=== PATIENT | female | born 1975 | race Hispanic/Latino ===

== ENCOUNTER 2022-03-02 23:12 | Observation (INO) | payer BC, OTHER ==
[~2022-03-02] VITALS: Ht 152.4 cm; Wt 57.9 kg
[2022-03-02 23:25] LABS: BASOPHILS % (AUTO) 0.5 % (0.0-5.0); EOSINOPHILS % (AUTO) 2.5 % (0.0-8.0); HEMATOCRIT 41.6 % (36-48); LYMPHOCYTES % (AUTO) 30.4 % (21.0-51.0); MEAN CORPUSCULAR HGB CONC 33.9 g/dL (32.0-36.0); MEAN CORPUSCULAR VOLUME 79.7 fL (79-99); NEUTROPHILS % (AUTO) 59.8 % (40.0-77.0); PLATELET COUNT (AUTO) 248 K/uL (130-400); RED BLOOD CELL COUNT(AUTO) 5.22 MIL/uL (4.00-5.50); RED CELL DISTRIBUTION WIDTH 12.6 % (11.0-15.5); WHITE BLOOD COUNT (AUTO) 7.3 K/uL (4.8-10.8)
[2022-03-02 23:36] LABS: CREATININE 0.8 mg/dL (0.5-1.5)
[2022-03-02 23:40] LABS: ALBUMIN 4.4 g/dL (3.5-5.0); BILIRUBIN,TOTAL 0.4 mg/dL (0.2-1.0); TOTAL PROTEIN, SERUM 8.1 g/dL (6.0-8.3)
[2022-03-02 23:57] LABS: APPEARANCE,URINE Clear (CLEAR); BILIRUBIN,URINE Negative (NEGATIVE); COLOR,URINE Yellow (YELLOW); GLUCOSE, URINE (UA) 500 mg/dL (NEGATIVE); KETONES,URINE Trace mg/dL (NEGATIVE); LEUKOCYTE ESTERASE ,URINE Negative (NEGATIVE); NITRATE,URINE Negative (NEGATIVE); OCCULT BLOOD,URINE Negative (NEGATIVE); PROTEIN,URINE Negative (NEGATIVE); UROBILINOGEN,URINE 0.2 mg/dL (0.2-1.0)
[2022-03-03] VITALS (8 sets, daily range): BP systolic 104–129; BP diastolic 65–86
[2022-03-03] MEDS ORDERED: NITROGLYCERIN 1GM OINT 1 INCH/1GM TD ONE ×2 (00:03→00:30)
[2022-03-03] MEDS ORDERED: ASPIRIN 325MG TAB ONE (00:03)
[2022-03-03 00:11] LABS: RBC,URINE 0-1 /HPF (0-1)
[2022-03-03 00:12] LABS: BACTERIA,URINE Few /HPF (None Seen); WBC,URINE 0-1 /HPF (0-1)
[2022-03-03 00:13] LABS: SQUAMOUS EPITHELIAL CELL,UR Rare /HPF (0-2)
[2022-03-03] MEDS: NITROGLYCERIN 1GM OINT 1 INCH/1GM TD SCH ×2 (00:30→08:57)
[2022-03-03] MEDS ORDERED: ASPIRIN 325MG TAB PO ONE (00:30)
[2022-03-03] MEDS ORDERED: ACETAMINOPHEN 325 MG TAB PO PRN ×2 (00:30)
[2022-03-03] MEDS ORDERED: ONDANSETRON 4MG INJ IV PRN (00:30)
[2022-03-03] MEDS ORDERED: CYCLOBENZAPRINE HCL 10 MG TABLET PO ONE (01:30)
[2022-03-03] MEDS ORDERED: HYDROCODONE/ACETAMINOPHEN 10/325 MG TAB PO ONE (01:30)
[2022-03-03] MEDS: INSULIN HUMULIN R 100 UNIT/ML 3ML SQ SCH ×4 (06:26→21:00)
[2022-03-03 08:11] LABS: HEMOGLOBIN A1C 7.6 % (4.0-6.0)
[2022-03-03] MEDS: FAMOTIDINE 20MG TAB PO SCH ×2 (08:51→21:29)
[2022-03-03] MEDS: ASPIRIN 81MG CHEW TAB PO SCH (08:51)
[2022-03-03] MEDS ORDERED: ENOXAPARIN SODIUM 40 MG/0.4 ML SYRINGE SQ SCH (09:00)
[2022-03-03] MEDS ORDERED: LISINOPRIL 10 MG TABLET PO SCH (09:00)
[2022-03-03] MEDS ORDERED: METOPROLOL TARTRATE 25 MG TAB PO SCH (09:00)
[2022-03-03 09:24] LABS: ALBUMIN 3.4 g/dL (3.5-5.0); BILIRUBIN,TOTAL 0.3 mg/dL (0.2-1.0); CREATININE 0.6 mg/dL (0.5-1.5); POTASSIUM 4.3 mmol/L (3.5-5.1); TOTAL PROTEIN, SERUM 6.5 g/dL (6.0-8.3)
[2022-03-03 14:12] LABS: INR 1.05 (0.85-1.15); PARTIAL THROMBOPLASTIN TIME 29.7 SEC (26.3-35.5); PROTHROMBIN TIME 10.9 SEC (9.6-11.6)
[2022-03-03] MEDS ORDERED: IOHEXOL 350 MG/ML 100ML INFUS..BTL IV ONE (15:50)
[2022-03-03] MEDS ORDERED: FENTANYL CITRATE PF 50 MCG/1 ML 2ML VIAL ONE (15:50)
[2022-03-03] MEDS ORDERED: IOHEXOL-350 50ML VIAL IV ONE ×2 (15:50→17:04)
[2022-03-03] MEDS ORDERED: LIDOCAINE HCL 1% MDV 50ML VIAL ONE (15:50)
[2022-03-03] MEDS ORDERED: MIDAZOLAM HCL 1 MG/ML 2ML VIAL ONE (15:50)
[2022-03-03] MEDS ORDERED: NITROGLYCERIN 50MG VIAL ONE (15:57)
[2022-03-03] MEDS ORDERED: LISINOPRIL 5 MG TABLET PO SCH (21:00)
[2022-03-03] MEDS ORDERED: ATORVASTATIN 40 MG TABLET PO SCH (21:00)
[2022-03-03] MEDS ORDERED: ROSU5TAB12 PO (23:58)
[2022-03-03] MEDS ORDERED: METF500S7 PO (23:58)
[2022-03-04 00:06] VITALS: BP 139/85
[2022-03-04 03:06] VITALS: BP 95/62
[2022-03-04 03:53] LABS: BASOPHILS % (AUTO) 0.6 % (0.0-5.0); EOSINOPHILS % (AUTO) 2.6 % (0.0-8.0); HEMATOCRIT 36.4 % (36-48); LYMPHOCYTES % (AUTO) 23.1 % (21.0-51.0); MEAN CORPUSCULAR HEMOGLOBIN 27.4 pg (27.0-33.0); MEAN CORPUSCULAR HGB CONC 33.8 g/dL (32.0-36.0); MEAN CORPUSCULAR VOLUME 81.1 fL (79-99); NEUTROPHILS % (AUTO) 67.4 % (40.0-77.0); PLATELET COUNT (AUTO) 183 K/uL (130-400); RED BLOOD CELL COUNT(AUTO) 4.49 MIL/uL (4.00-5.50); RED CELL DISTRIBUTION WIDTH 12.5 % (11.0-15.5); WHITE BLOOD COUNT (AUTO) 6.8 K/uL (4.8-10.8)
[2022-03-04 04:11] LABS: CREATININE 0.6 mg/dL (0.5-1.5); PHOSPHORUS 3.9 mg/dL (2.5-4.9); POTASSIUM 3.6 mmol/L (3.5-5.1)
[2022-03-04] MEDS: INSULIN HUMULIN R 100 UNIT/ML 3ML SQ SCH ×2 (07:30→11:30)
[2022-03-04 08:00] VITALS: BP 107/68
[2022-03-04] MEDS: FAMOTIDINE 20MG TAB PO SCH (09:17)
[2022-03-04] MEDS: ASPIRIN 81MG CHEW TAB PO SCH (09:18)
[2022-03-04] MEDS ORDERED: ASPI-891 PO (09:19)
[2022-03-04] MEDS ORDERED: PANT20TA PO (09:19)
[2022-03-04] MEDS ORDERED: AEC81 PO (09:19)
[2022-03-04] MEDS ORDERED: ATOR10 PO (09:42)
[2022-03-04 11:38] VITALS: BP 117/78
[2022-03-04 19:06] VITALS: BP 129/56
== END 2022-03-04 13:00 | disposition home or self-care (01) ==
LOC: EDH 23:12 → EDHIP 03-03 00:28 → 2DH 03-03 03:03
PROVIDERS: ADMIT Internal Medicine; ATTEND Internal Medicine
DX: I24.9 Acute ischemic heart disease, unspecified (principal); Z20.822 Contact with and (suspected) exposure to COVID-19; R07.89 Other chest pain; R79.89 Other specified abnormal findings of blood chemistry; I10 Essential (primary) hypertension; I21.4 Non-ST elevation (NSTEMI) myocardial infarction; E11.65 Type 2 diabetes mellitus with hyperglycemia; E78.5 Hyperlipidemia, unspecified; E03.9 Hypothyroidism, unspecified; E78.1 Pure hyperglyceridemia; E78.00 Pure hypercholesterolemia, unspecified; Q24.5 Malformation of coronary vessels; Z86.16 Personal history of COVID-19; Z79.82 Long term (current) use of aspirin; Z79.899 Other long term (current) drug therapy; Z90.710 Acquired absence of both cervix and uterus
CPT/HCPCS: 36415 ×3; 71045; 80048; 80053 ×2; 80061; 81001; 82010 ×2; 82948 ×4; 83036; 83605; 83735; 84100; 84145; 84443; 84484 ×4; 85025 ×2; 85610; 85651; 85730; 86140; 87635; 87804 ×2; 93005 ×3; 93306; 93356; 93458; 96372; 99285; C1760; C1894 ×2; G0378 ×32; J1644; J1650; J2250; J3010; J3490 ×2; Q9965; Q9967 ×3; 99156; 99157

== ENCOUNTER 2022-05-08 00:24 | Emergency (ER) | payer BC ==
[~2022-05-08] VITALS: Ht 152.4 cm; Wt 56.7 kg
[~2022-05-08 00:24] MED LIST: AEC81 PO; ASPI-891 PO; ATOR10 PO; METF500S7 PO; PANT20TA PO; ROSU5TAB12 PO
[2022-05-08] MEDS ORDERED: MORPHINE 4 MG SYG IM ONE (01:30)
[2022-05-08] MEDS ORDERED: ORPHENADRINE CITRATE 30 MG/ML ML IM ONE (01:30)
[2022-05-08] MEDS ORDERED: DEXAMETHASONE SOD PHOSPHATE 10MG/ML 1ML VIAL ONE (03:08)
[2022-05-08] MEDS ORDERED: CYCL-309 PO (03:28)
[2022-05-08] MEDS ORDERED: METH4TAB3 PO (03:28)
[2022-05-08 03:48] VITALS: BP 132/78
== END 2022-05-08 03:54 | disposition home or self-care (01) ==
LOC: EDH 00:24
DX: M54.12 Radiculopathy, cervical region (principal); E11.9 Type 2 diabetes mellitus without complications; E78.00 Pure hypercholesterolemia, unspecified; Z79.52 Long term (current) use of systemic steroids; Z79.82 Long term (current) use of aspirin; Z79.84 Long term (current) use of oral hypoglycemic drugs; Z79.899 Other long term (current) drug therapy
CPT/HCPCS: 72125; 73030; 96372 ×3; 99284; J1100; J2270; J2360

== ENCOUNTER 2023-10-13 13:39 | Emergency (ER) | payer BC ==
[~2023-10-13] VITALS: Ht 152.4 cm; Wt 56.2 kg
[~2023-10-13 13:39] MED LIST changes: +CYCL-309 PO; -METF500S7 PO; +METF500S9 PO; +METH4TAB3 PO
[2023-10-13 14:25] LABS: BASOPHILS # (AUTO) 0.04 K/uL (0.00-0.20); BASOPHILS % (AUTO) 0.6 % (0.0-5.0); EOSINOPHILS # (AUTO) 0.12 K/uL (0.00-0.70); EOSINOPHILS % (AUTO) 1.9 % (0.0-8.0); HEMATOCRIT 42.9 % (36-48); IMMATURE GRANULOCYTE ABSOLUTE 0.03 K/uL (0-1); LYMPHOCYTES # (AUTO) 1.5 K/uL (1.0-4.8); LYMPHOCYTES % (AUTO) 23.2 % (21.0-51.0); MEAN CORPUSCULAR HEMOGLOBIN 27.6 pg (27.0-33.0); MEAN CORPUSCULAR HGB CONC 33.8 g/dL (32.0-36.0); MEAN CORPUSCULAR VOLUME 81.7 fL (79-99); MONOCYTES # (AUTO) 0.4 K/uL (0.1-1.0); MONOCYTES % (AUTO) 6.2 % (3.0-13.0); NEUTROPHILS # (AUTO) 4.4 K/uL (1.8-7.7); NEUTROPHILS % (AUTO) 67.6 % (40.0-77.0); PLATELET COUNT (AUTO) 269 K/uL (130-400); RED BLOOD CELL COUNT(AUTO) 5.25 MIL/uL (4.00-5.50); RED CELL DISTRIBUTION WIDTH 12.4 % (11.0-15.5); WHITE BLOOD COUNT (AUTO) 6.5 K/uL (4.8-10.8)
[2023-10-13 14:28] LABS: APPEARANCE,URINE CLEAR (CLEAR); BILIRUBIN,URINE NEGATIVE (NEGATIVE); COLOR,URINE COLORLESS (YELLOW); GLUCOSE, URINE (UA) 200 mg/dL (NEGATIVE); KETONES,URINE NEGATIVE (NEGATIVE); LEUKOCYTE ESTERASE ,URINE NEGATIVE Leu/uL (NEGATIVE); NITRATE,URINE NEGATIVE (NEGATIVE); OCCULT BLOOD,URINE NEGATIVE (NEGATIVE); PH,URINE 6.5 (5.0-8.0); PROTEIN,URINE NEGATIVE (NEGATIVE); UROBILINOGEN,URINE 0.2 mg/dL (0.2-1.0)
[2023-10-13 14:29] LABS: ADD UA MICROSCOPIC YES
[2023-10-13 14:48] LABS: CREATININE 0.8 mg/dL (0.5-1.5); POTASSIUM 3.3 mmol/L (3.5-5.1)
[2023-10-13 14:53] LABS: BILIRUBIN,TOTAL 0.3 mg/dL (0.2-1.0); TOTAL PROTEIN, SERUM 7.9 g/dL (6.0-8.3)
[2023-10-13] MEDS ORDERED: SOLU-MEDROL 125MG VIAL IVP ONE (15:30)
[2023-10-13] MEDS ORDERED: METH4TAB3 PO (17:12)
[2023-10-13 17:16] VITALS: BP 136/78; PULSE 68; RESP 16; O2SAT 100
== END 2023-10-13 17:23 | disposition home or self-care (01) ==
LOC: EDH 13:39
DX: S29.011A Strain of muscle and tendon of front wall of thorax, initial encounter (principal); M94.0 Chondrocostal junction syndrome [Tietze]; E11.9 Type 2 diabetes mellitus without complications; E78.00 Pure hypercholesterolemia, unspecified; Z79.52 Long term (current) use of systemic steroids; Z79.82 Long term (current) use of aspirin; Z79.84 Long term (current) use of oral hypoglycemic drugs; Z79.899 Other long term (current) drug therapy; X58.XXXA Exposure to other specified factors, initial encounter; Y93.89 Activity, other specified; Y92.89 Other specified places as the place of occurrence of the external cause; Y99.8 Other external cause status
CPT/HCPCS: 99284; 96374; 71045; 84484; 80053; 85025; 81001; 36415; 93005; J2930